=== PATIENT | female | born 1945 | race Caucasian/White ===

== ENCOUNTER 2018-07-31 01:13 | Outpatient (CLI) | payer MEDICARE, BC, SELFPAY ==
--- NOTE | 2018-07-31 11:35 | DI.MAMMO_ITS ---
SYMPTOMS/DIAGNOSIS: SCREENING, Z12.39 MAMMOGRAM: Mammograms were interpreted according to the usual protocol including computer analysis with CAD system, tomosynthesis and C view imaging. Comparison is made with exams from 2010 through 2016. The breasts are composed of scattered fibroglandular densities. No suspicious masses or suspicious microcalcifications are seen. There has been no significant change. IMPRESSION: Category I B, negative mammogram. Yearly screening mammography is recommended. [facility] ASSESSMENT OF FINDINGS: Negative. Category 1. Patient will receive a letter notifying them of these results. BI-RADS category B. There are scattered areas of fibroglandular density.
== END 2018-07-31 01:33 ==
PROVIDERS: PCP Family Medicine; Visit Provider Nurse Practitioner Family
DX: Z12.31 Encounter for screening mammogram for malignant neoplasm of breast (principal)
CPT/HCPCS: 77063; 77067

== ENCOUNTER 2023-10-25 05:25 | Outpatient (CLI) | payer MEDICARE, BC, SELFPAY ==
[2023-10-25 13:28] LABS: ALT 30 U/L (14-59); AST 19 U/L (15-37); Albumin 3.3 g/dL (3.4-5.0); Alkaline Phosphatase 109 U/L (46-116); Anion Gap 6.3 mmol/L (3-11); BUN 12 mg/dL (7-18); Bilirubin, Total 0.6 mg/dL (0.2-1.0); CO2 28.7 mmol/L (21.0-32.0); CREATININE 0.7 mg/dL (0.55-1.02); Calcium 9.2 mg/dL (8.5-10.1); Calculated LDL 137 mg/dL (<100); Chloride 105 mmol/L (98-107); Cholesterol 217 mg/dL (<200); Estimated GFR 89.02 (mL/min/1.73m2); Glucose 95 mg/dL (74-106); HDL Cholesterol 66 mg/dL (40-60); Potassium 4.1 mmol/L (3.5-5.1); Sodium 140 mmol/L (136-145); Triglyceride 71 mg/dL (<150)
== END 2023-10-25 05:26 | disposition home or self-care (01) ==
PROVIDERS: PCP Family Medicine; Visit Provider Family Medicine
DX: E78.00 Pure hypercholesterolemia, unspecified (principal)
CPT/HCPCS: 36415; 80053; 80061

== ENCOUNTER 2024-09-25 14:02 | Emergency (ER) | payer MEDICARE, BC, SELFPAY ==
[2024-09-25 14:06] VITALS: BP 156/89; PULSE 61; RESP 20; TEMP 36.8; O2SAT 98
--- NOTE | 2024-09-25 14:15 | DI.RAD_ITS ---
Exam(s) XR CHEST 2V PA LATERAL EXAM: XR CHEST 2V PA LATERAL CLINICAL HISTORY: right sided chest pain. TECHNIQUE: 2D digital imaging was performed. COMPARISON: No exams were available for comparison FINDINGS: 2 views: Heart size is normal. The mediastinum is not widened. Left lung is clear. However there is a 1.3 by 1.0 cm area of increased markings-possible nodular inf iltrate in the mid right lung field parahilar region seen on the PA view. Either infectious versus n eoplasm. Recommend follow-up CT scan. IMPRESSION: 13 x 10 mm nodular infiltrate mid right lung field. CT scan recommended DATA REPOSITORY: RADIATION DOSE DELIVERED:
--- NOTE | 2024-09-25 14:19 | ED.GENADUL_ITS ---
Discharge Plan Disposition Patient Disposition: Home Condition: Stable Discharge Details Clinical Impression: Chest wall pain, Infiltrate noted on imaging study Primary Care Provider: Julian Sherman ED Provider: Tree Gonzalez Home Meds and New Rx's Prescriptions: New doxycycline hyclate 100 mg tablet 100 mg PO BID Qty: 14 0RF amoxicillin-pot clavulanate 875-125 mg tablet 1 tab PO BID Qty: 14 0RF lidocaine 5 % adhesive patch,medicated 1 patch topical DAILY PRN (Reason: pain) Qty: 30 0RF Rx Instructions: leave on most painful area for up to 12 hrs Continued multivitamin [Daily Vitamin] 1 EACH tablet 1 ea PO DAILY calcium carbonate-vitamin D3 1 EACH tablet 1 ea PO BID vitamin B complex 1 EACH capsule 1 ea PO DAILY Fish Oil 300 MG capsule 300 mg PO DAILY Rx Instructions: 4 tablets daily ibuprofen 800 MG tablet 800 mg PO TID citalopram [Celexa] 10 MG tablet 10 mg PO DAILY meclizine 25 mg tablet,chewable 25 mg PO QID PRN Discharge Instructions Additional Instructions: Your x-ray showed you have an infiltrate. You are being treated with antibiotics to treat a possible infection. You should follow-up with your primary care provider in 1 to 2 weeks and have a follow-up imaging study done to see if the infiltrate has resolved. If you feel more ill, have severe worsening pain or high fevers return to the emergency department for reevaluation HPI General Mode of arrival: ambulatory . Date/Time Provider Initiated Documentation: 09/25/24 14:04 . Limitations to Documentation: no limitations . Information obtained by: patient . History of Present Illness 78 year old F presents to the emergency department with the chief complaint of right sided rib/chest pain, described as moderate, Patient started experiencing this hour(s) (6) and it has been constant. No relieving factors improve symptom(s), No exacerbating factors reported . Patient notes denies fever/chills and nausea/vomiting. Patient did receive the following treatments prior to arrival, NSAID Related Data Home Medications ?Medication ?Instructions ?Recorded ?Confirmed calcium 600 mg (as 1 ea PO BID 10/15/12 09/25/24 carbonate)-vitamin D3 5 mcg (200 unit) tablet citalopram 10 mg tablet (Celexa) 10 mg PO DAILY 10/15/12 09/25/24 ibuprofen 800 mg tablet 800 mg PO TID 10/15/12 09/25/24 multivitamin (Daily Vitamin tablet) 1 ea PO DAILY 10/15/12 09/25/24 omega-3 fatty acids 300 mg capsule 300 mg PO DAILY 10/15/12 09/25/24 (Fish Oil) vitamin B complex 1 ea PO DAILY 10/15/12 09/25/24 meclizine 25 mg chewable tablet 25 mg PO QID PRN 09/05/24 09/25/24 amoxicillin 875 mg-potassium 1 tab PO BID #14 tabs 09/25/24 clavulanate 125 mg tablet doxycycline hyclate 100 mg tablet 100 mg PO BID #14 tabs 09/25/24 lidocaine 5 % topical patch 1 patch topical DAILY PRN pain #30 09/25/24 ea Previous Rx's ?Medication ?Instructions ?Recorded amoxicillin 875 mg-potassium 1 tab PO BID #14 tabs 09/25/24 clavulanate 125 mg tablet doxycycline hyclate 100 mg tablet 100 mg PO BID #14 tabs 09/25/24 lidocaine 5 % topical patch 1 patch topical DAILY PRN pain #30 09/25/24 ea Allergies Allergy/AdvReac Type Severity Reaction Status Date / Time Sulfa (Sulfonamide Allergy Mild SKIN RASH Unverified 09/25/24 14:09 Antibiotics) General Stated Complaint: Chest/Rib NADJA: 4 Review of Systems All systems reviewed & are unremarkable except as noted in HPI and below Constitutional Constitutional: Denies chills, Denies fever(s) and Denies weakness Eyes Eyes: Denies loss of vision Cardiovascular Cardiovascular: Reports chest pain and Denies dyspnea Respiratory Respiratory: Denies cough and Denies dyspnea Gastrointestinal Gastrointestinal: Denies abdominal pain, Denies nausea and Denies vomiting Neurologic Neurologic: Denies loss of vision and Denies weakness Psychiatric Psychiatric: Denies depression Exam Const General: no acute distress Orientation: alert HENNM Head: normal to inspection Ears: external ears normal General nose exam: external nose normal Mouth: moist mucous membranes Eyes General: appearance normal, both eyes and all related structures Neck Neck: normal visual inspection Chest Chest: tenderness Resp Effort & Inspection: normal respiratory effort and able to speak in complete sentences Auscultation: clear to auscultation bilaterally Cardio Jugular venous pressure: no JVD Rate: regular rate Heart Sounds: no murmurs GI Palpation: soft and nontender Skin General skin exam: no rashes or lesions noted Neuro General: patient alert and patient oriented x3 Extrem General: normal to inspection Psych Mental Status: mental status grossly normal Course Vital Signs Vital signs: Vital Signs Temperature 36.8 C 09/25/24 14:06 Pulse 61 09/25/24 14:06 Respiratory Rate 20 09/25/24 14:06 Blood Pressure 156/89 H 09/25/24 14:06 Pulse Oximetry 98 09/25/24 14:06 Temperature 36.8 C 09/25/24 14:06 Pulse 61 09/25/24 14:06 Respiratory Rate 20 09/25/24 14:06 Respiratory Effort Normal 09/25/24 14:16 Respiratory Depth Normal 09/25/24 14:16 Respiratory Pattern Normal 09/25/24 14:16 Blood Pressure 156/89 H 09/25/24 14:06 Blood Pressure Position Sitting 09/25/24 14:06 Pulse Oximetry 98 09/25/24 14:06 Oxygen Delivery Method Room Air 09/25/24 14:06 Oxygen Flow Rate 0 09/25/24 14:06 Pain Level 10 09/25/24 14:16 Medical Decision Making 78-year-old female who states she has been dealing with right-sided TMJ disorder and was given physical therapy for this this morning when she started having reproducible right-sided chest pain with midaxillary line. Denies any falls, trauma, fever, cough. She says a deep breath does make the pain worse. She has no anterior chest pressure, diaphoresis. She localizes the pain in a dermatomal distribution of the T6 area in the mid axillary and anterior and posterior axillary regions. There is no visible rash at this time. She is tender when I push on this area. She has no abdominal tenderness. Clear lung sounds. She has no leg swelling or calf tenderness. Her pain seems musculoskeletal but given the dermatomal distribution of her pain it could be shingles without the rash being present at this time. Will check CBC, CMP, troponins though my suspicion for NSTEMI is low. She has no tearing back pain and equal peripheral pulses so doubt dissection. She has no evidence of DVT on exam, no hypoxia or tachycardia so I doubt PE. Will obtain an x-ray to evaluate for possible pneumothorax though seems unlikely given equal breath sounds bilaterally. Patient's labs thus far unremarkable, delta troponin pending. X-ray shows a right sided nodular infiltrate. I discussed with the patient and advised the radiologist recommends a CAT scan with the patient declines due to her fear of radiation despite me saying that the risk of radiation at her age is low and she has decision-making capacity and declines to do a CAT scan. I will present a week treat with oral antibiotics. She's on citalopram so will avoid levoflxoacin, will start doxy and augmentin. I did advise that she would need to have follow-up imaging to make sure this infiltrate has resolved and if not she may need further imaging studies or bronchoscopy Second troponin negative. Patient still declines CT. She is stable for discharge and will follow-up with her PCP, return precautions given Differential Diagnosis Differential Diagnosis: Pleurisy, chest wall pain, shingles Quality:SDOH Health Related Social Needs: No Data to Display PFSH All Active Problems (Updated 09/25/24 @ 16:09 by Tree Gonzalez MD) Infiltrate noted on imaging study (Acute) Chest wall pain (Acute) Medical History (Updated 09/25/24 @ 16:09 by Tree Gonzalez MD) Irritable colon with diverticulosis Vitamin D deficiency Rosacea Gastroesophageal reflux disease Hyperlipidemia Depression Anxiety Surgical History (Updated 04/03/13 @ 13:46 by Christine Palafox) FORAMINOTOMY RIGHT L5 FASCIECTOMY,MEDIAL L5,S1 Social History Smoking risk assessment performed?: No
[2024-09-25] MEDS: Lidocaine 5% Patch 1 PATCH TP (14:29)
[2024-09-25 14:45] LABS: Abs Immature Grans 0.01 10^3/uL (0.0-0.06); Absolute Basophil Count 0.04 10^3/uL (0.0-0.2); Absolute Eosinophil Count 0.34 10^3/uL (0.0-0.7); Absolute Lymphocyte Count 1.83 10^3/uL (1.2-3.4); Absolute Neutrophil Count 3.27 10^3/uL (1.2-6.7); Basophils % 0.7 %; Eosinophils % 5.7 %; HCT 42.1 % (36.0-46.0); HGB 14.3 g/dL (11.2-15.7); Immature Grans % 0.2 %; Lymphocytes % 30.6 %; MCV 91 fL (80-95); MPV 10.5 fL (8.0-11.0); Monocytes % 8.3 %; Neutrophils % 54.5 %; Platelet Count 239 10^3/uL (130-400); RBC 4.62 10^6/uL (3.93-5.22); RDW 12.8 % (11.7-14.6); RDW-SD 42.3 fL; WBC 5.99 10^3/uL (4.4-10.8)
[2024-09-25 15:25] VITALS: BP 138/66; PULSE 56; RESP 14; O2SAT 98
[2024-09-25 15:41] LABS: ALT 33 U/L (14-59); AST 26 U/L (15-37); Albumin 3.8 g/dL (3.4-5.0); Alkaline Phosphatase 98 U/L (46-116); Anion Gap 6.2 mmol/L (3-11); BUN 14 mg/dL (7-18); Bilirubin, Total 0.5 mg/dL (0.2-1.0); CO2 29.8 mmol/L (21.0-32.0); CREATININE 0.7 mg/dL (0.55-1.02); Calcium 9.8 mg/dL (8.5-10.1); Chloride 108 mmol/L (98-107); Estimated GFR 89.02 (mL/min/1.73m2); Glucose 109 mg/dL (74-106); Magnesium 2.2 mg/dL (1.8-2.4); Potassium 4.3 mmol/L (3.5-5.1); Sodium 144 mmol/L (136-145); Total Protein 7.1 g/dL (6.4-8.2); Troponin I 7 ng/L (<or=51)
[2024-09-25 16:01] LABS: Troponin I 7 ng/L (<or=51)
[2024-09-25] MEDS: Doxycycline Hyclate 100 MG CAP PO (16:11)
[2024-09-25] MEDS: Amoxicillin 875/Clav. 125 TAB PO (16:11)
[2024-09-25 16:18] VITALS: BP 158/73; PULSE 54; RESP 16; TEMP 36.5; O2SAT 100
--- NOTE | 2024-09-26 09:44 | NUR.NOTE ---
patient called with questions regarding rx's from visit Nursing Note:
== END 2024-09-25 16:29 | disposition home or self-care (01) ==
PROVIDERS: Emergency Provider Emergency Medicine; PCP Family Medicine
DX: R07.89 Other chest pain (principal); R91.8 Other nonspecific abnormal finding of lung field; E78.5 Hyperlipidemia, unspecified
CPT/HCPCS: 36415; 80053; 99284; 71046; 83735; 84484; 85025

== ENCOUNTER 2024-10-22 01:14 | Outpatient (CLI) | payer MEDICARE, BC, SELFPAY ==
--- NOTE | 2024-10-22 | DI.CT_ITS ---
Exam(s) CT CHEST WO EXAM: CT CHEST WO CLINICAL HISTORY: Abnl chest x-ray, R93.89; opacity on CXR concerning for infection versus. TECHNIQUE: Imaging protocol: Axial computed tomography images were obtained and coronal and sagittal reformatted images were created and reviewed. Computer aided detection (CAD) was utilized. CONTRAST MATERIAL: Noncontrast COMPARISON: CR LUMBAR SPINE COMPLETE from 09/10/2008 CR LUMBAR SPINE COMPLETE from 10/12/2015 CR XR CHEST 2V PA LATERAL from 09/25/2024 FINDINGS: Pulmonary parenchyma: No suspicious mass. No consolidation. 5 millimeter nodule medial right lower l obe. Other scattered micro nodules. Interstitial changes: None. Emphysema: None. Tracheobronchial tree: No mucous plugging. No bronchiectasis . Pleura: No effusion or pneumothorax. Heart: The heart is not dilated. The coronary arteries show mild calcifications. Aorta: Thoracic aorta non-dilated. Mild atherosclerotic changes. Lymph nodes: No enlarged lymph nodes. Bones: Moderate compression fracture of L1. Degenerative changes are seen. Old right rib fracture. Upper abdomen: Unremarkable. Cholecystectomy. Soft tissues: Unremarkable. IMPRESSION: There is no abnormality corresponding to the chest x-ray density which likely represents overlying st ructures. 5 millimeter nodule medial right lower lobe. ???Solid nodules smaller than 6 mm (those 5 mm or smaller) do not require routine follow-up in patien ts at low risk (grade 1C; strong recommendation, low- or [id number] evidence). (Kayla et al. , 2017) RADIATION DOSE DELIVERED: Total DLP Total DLP DATA REPOSITORY: All CT scans at this facility are submitted to the National Radiology Data Registry (NRDR) Dose Index Registry (DIR) with the [employer] ([employer]). RADIATION OPTIMIZATION: All CT scans at this facility use at least one of these dose optimization te chniques: automated exposure control; mA and/or kV adjustment per patient size (includes targeted exa ms where dose is matched to clinical indication); or iterative reconstruction.
== END 2024-10-22 01:34 ==
LOC: DI 01:15
PROVIDERS: PCP Family Medicine; Visit Provider Internal Medicine
DX: R93.89 Abnormal findings on diagnostic imaging of other specified body structures (principal); R91.1 Solitary pulmonary nodule
CPT/HCPCS: 71250

== ENCOUNTER 2024-12-30 17:40 | Outpatient (REF) | payer MEDICARE, BC, SELFPAY ==
[2024-12-30 14:52] LABS: Bilirubin Negative (Negative); Blood Negative (Negative); Clarity Clear (Clear); Glucose Negative (Negative); Ketones Negative (Negative); Leukocyte Esterase Negative (Negative); Nitrite Negative (Negative); Specific Gravity 1.015 (1.005-1.025); Urobilinogen 0.2 mg/dL (Up to 0.2)
== END 2024-12-30 17:41 | disposition home or self-care (01) ==
LOC: LBN 17:40
PROVIDERS: PCP Family Medicine; Visit Provider Internal Medicine
DX: R35.0 Frequency of micturition (principal)
CPT/HCPCS: 81003